=== PATIENT | male | born 1970 | race Caucasian/White ===

== ENCOUNTER 2016-07-25 10:28 | Day surgery (SDC) | payer BC ==
[2016-07-25] VITALS (12 sets, daily range): BP systolic 102–142; BP diastolic 58–81; PULSE 72–98; RESP 18; TEMP 98–98.4; O2SAT 94–99
[~2016-07-25] VITALS: Ht 170.2 cm; Wt 82.1 kg
[2016-07-25] MEDS ORDERED: MAGN400T2 PO (10:51)
[2016-07-25] MEDS ORDERED: NITR1SUB3 SL (10:51)
[2016-07-25] MEDS ORDERED: BACL10TA PO (10:51)
[2016-07-25] MEDS ORDERED: ASPI81CH CHEW (10:51)
[2016-07-25] MEDS ORDERED: NS 1000P @30 MLS/HR (KVO) IV SCH (11:00)
[2016-07-25] MEDS ORDERED: IOHEXOL 350 MG/ML 100 ML BTL (for Cath Lab) OTHER ONE (12:22)
[2016-07-25] MEDS ORDERED: HEPARIN-NS/PF INJ 500 ML ONE ×2 (12:24→13:25)
[2016-07-25] MEDS ORDERED: HEPARIN SODIUM - IV 10,000 UNITS/10 ML VIAL ONE (12:26)
[2016-07-25] MEDS ORDERED: VERAPAMIL HCL 5 MG/2 ML VIAL ONE (12:26)
[2016-07-25] MEDS ORDERED: MIDAZOLAM HCL 2 MG/2 ML VIAL ONE (12:26)
[2016-07-25] MEDS ORDERED: TEMAZEPAM 15 MG CAP PO PRN (14:00)
[2016-07-25] MEDS ORDERED: ONDANSETRON HCL 4 MG/2 ML VIAL IVP PRN (14:00)
[2016-07-25] MEDS ORDERED: MORPHINE SULFATE 4 MG/ML INJ IV PUSH PRN (14:00)
[2016-07-25] MEDS ORDERED: ACETAMINOPHEN 325 MG TAB PO PRN (14:00)
[2016-07-25] MEDS ORDERED: oxyCODONE/ACETAMINOPHEN 10 MG/325 MG TAB PO PRN (14:00)
[2016-07-25] MEDS ORDERED: TICAGRELOR 90 MG TAB PO ONE ×2 (14:00→14:01)
[2016-07-25] MEDS ORDERED: LIDOCAINE 2% JELLY 30 ML TUBE TOP PRN (14:00)
[2016-07-25] MEDS ORDERED: MISC INFORMATION XX ONE (14:00)
[2016-07-25] MEDS: SODIUM CHLOR 0.9% 1000 ML INJ 1,000 ML IV SCH (14:00)
[2016-07-25] MEDS ORDERED: BACITRACIN OINT 0.9 GM PKT TOP ONE (14:00)
[2016-07-25] MEDS ORDERED: ATEN25TA PO (14:07)
[2016-07-25] MEDS ORDERED: BRIL90TA PO (14:08)
[2016-07-25] MEDS ORDERED: ATOR40TA16 PO (14:08)
--- NOTE | 2016-07-25 14:18 | CATHPROC ---
[place] HIS Report Study Information Study Number Admission Scheduled Start Study Start [id number] 07/25/2016 07/25/2016 Jul 25 2016 12:24PM Study Type Left/Possible PCI Referring Institution Admit Source Facility Department 1 [facility] - Immunology Specialist Physician and Clinical Staff Initial Mateo Preston Joey, RN Circulator Clark RN, Carli Malik RN Recorder Lucy Wilson RCIS TECH2 Scrub Kevin Avery RCIS(BS) Procedures Performed Procedure Location (Site) Vessel Name Coronary Angiograms LCA Left Coronary Coronary Angiograms RCA Right Coronary Drug Eluting Inflatio LAD Prox Left Coronary Drug Eluting Inflatio RCA Dist Right Coronary L Heart Cath PTCA LAD Prox Left Coronary PTCA RCA Dist Right Coronary Wire insertion Radial (right) Radial Art. Equipment Time Steward/Stewardess Lounge Description Size Mfg Part Number Used/Scraped COPILOT VALVE, BLEEDBACK 13:20 [employer] [id number] Used CONTROL TRANSDUCER, TRUWAVE 12:25 MemfoACT HALL * [id number] Used W/[employer] CONCEPT DRAPE, RADIAL FEMORAL FULL 12:25 * [id number] Used DEVELOPMENT BODY 12:25 [employer] PACK, CCL CUSTOM * [id number] Used 12:25 [employer] SUPPORT, ARTERIAL ADULT [id number] Used 12:25 E[employer]ity PACER PEN, SKIN DUAL W/ RULER * [id number] Used 13:14 MEDTRONIC BALLOON, 2.0 X 10MM EUPHORA 10MM [id number] Used 13:19 MEDTRONIC BALLOON, 2.5 X 30MM EUPHORA 30MM [id number] Used 13:49 MEDTRONIC BALLOON, 3.0 X 12MM EUPHORA 12MM [id number] Used STENT, 2.5 30 RESOLUTE 13:30 MEDTRONIC 2.5 30 [id number] Used INTEGRITY RX STENT, 3.0 15 RESOLUTE 13:46 MEDTRONIC 3.0 15 [id number] Used INTEGRITY RX 13:15 [employer] MEDICAL 30 CLAU INDEFLATOR [id number] Used SHEATH, FR6 RADIAL PRELUDE 12:25 Efficiency Exchange FR 6 [id number] Used EASE 11CM 12:25 Efficiency Exchange WIRE, EXCHANGE 260CM 3MMJ 260CM [id number] Used 12:25 [employer]ED OMNIPAQUE, 350 MG, 100ML 100ML [id number] Used 12:25 [facility] BLANKET,WARM AIR CCL * [id number] Used BAND, RADIAL COMPRESSION TR 12:25 [employer] 29CM [id number] Used LARGE WIRE, RUNTHROUGH NS FLOPPY 13:11 [employer] 180CM 25-1011 Used .014 180CM WIRE, RUNTHROUGH NS FLOPPY 13:10 [employer] 300CM 25-1013 Used .014 300CM Scrap: Staff 13:28 MEDTRONIC BALLOON, 2.5 X 30MM EUPHORA 30MM [id number] Error Equipment Model, Serial, Lot Number and Expiration Data Description Model Number Serial Number Lot Number Expiration Date STENT, 2.5 30 RESOLUTE [id number] 11-21-2017 INTEGRITY RX STENT, 3.0 15 RESOLUTE [id number] 02-16-2018 INTEGRITY RX History: Current Medications Medication Dosage/Unit Route Frequency Last Date/Time Taken ASA NTG SL Magnesium History: Allergies Allergy Reaction No Known Allergies History: Risk Factors Family History of Hypertension Dyslipidemia Previous ME Previous Heart Failure Premature CAD No Yes No No No Prior Valve Prior PCI Prior CABG Surgery No No No Cerebrovascular Peripheral Artery Chronic Lung On Dialysis Diabetes Disease Disease Disease No No No No No History: Symptoms/Diagnosis Selection Items Chest pain History: Stress Tests Stress or Imaging Studies Performed Yes Standard Exercise Stress Stress Test Result Test Yes Positive Cardiac CTA Coronary Calcium Score No No History: Other Current Smoker No Labs Hgb (g/dl) Hct (%) RBC (MIL/MM3) WBC (l/cumm) Platelets (thousands) 12.00-18.00 37.00-55.00 4.80-6.20 4.80-10.80 140.00-450.00 15.6 46.5 5.2 7.4 277 Glucose (mg/dl) BUN (mg/dl) Creatinine (mg/dl) BUN:Creatinine (1:x) 60.00-110.00 8.00-20.00 0.10-9.00 10.00-20.00 95 12 0.9 13.3 Medication Medication Total Dose (Bolus/Oral) Medication Total Dosage/Unit 1% XYLOCAINE 20 mL BRILLINTA 180 mg FENTANYL 50 mcg HEPARIN 8000 units NTG (IC) 500 mcg VERSED 2 mg Medications (Bolus/Oral) Medication Time Given Dosage/Unit Administered By Reason VERSED 07/25/2016 12:50:27 PM 2 mg Micheal Ballard RN 2 mg VERSED given in lab by Micheal Ballard RN in Left Antecubital via Peripheral IV. 1% XYLOCAINE 07/25/2016 12:51:13 PM 20 mL Mateo Morocho 20 mL 1% XYLOCAINE given in lab by Mateo Morocho in Right Radial via Subcutaneous. FENTANYL 07/25/2016 12:51:39 PM 50 mcg Micheal Ballard RN 50 mcg FENTANYL given in lab by Micheal Ballard RN in Left Antecubital via Peripheral IV. NTG (IC) 07/25/2016 12:52:27 PM 200 mcg Mateo Morocho 200 mcg NTG (IC) given in lab by Mateo Morocho in Right Radial via Intra-arterial. HEPARIN 07/25/2016 12:52:51 PM 5000 units Micheal Ballard RN 5000 units HEPARIN given in lab by Micheal Ballard RN via Peripheral IV. HEPARIN 07/25/2016 1:07:47 PM 3000 units Micheal Ballard RN 3000 units HEPARIN given in lab by Micheal Ballard RN in Left Antecubital via Peripheral IV. NTG (IC) 07/25/2016 1:20:48 PM 200 mcg Mateo Morocho 200 mcg NTG (IC) given in lab by Mateo Morocho via Intra-coronary to RCA. NTG (IC) 07/25/2016 1:33:57 PM 50 mcg Mateo Morocho 50 mcg NTG (IC) given in lab by Mateo Morocho via Intra-coronary. NTG (IC) 07/25/2016 1:55:02 PM 50 mcg Mateo Morocho 50 mcg NTG (IC) given in lab by Mateo Morocho via Intra-coronary to LCA. BRILLINTA 07/25/2016 2:03:28 PM 180 mg Micheal Ballard RN 180 mg BRILLINTA given in lab by Micheal Ballard RN in Per mouth via Oral. Medication (Drip) Medication Time Given Dosage/Unit Concentration/Unit Diluent (ml) Solution IV Solutions 07/25/2016 12:26:22 PM 0 mL (IV) 500 NaCl .9 Patient arrived on IV Solutions given by Micheal Ballard RN in Left Antecubital via Peripheral IV. Pump/ Drip Flow = 20 ml/hr using NaCl .9. Initial Case Assessment Cardiovascular HR Rhythm NIBP Chest Pain 75 sr 140/84 0 Circulatory - Right Pulses Dorsalis Pedis Femoral 1 1 Scale (0,1,2,3,4,d) Circulatory - Left Pulses Dorsalis Pedis Femoral 1 1 Scale (0,1,2,3,4,d) Neurological State Oriented to time-place- Alert Moves all extremities person Respiration - General Respiration Rate (B/min) 10 Final Case Assessment Cardiovascular HR Rhythm NIBP Chest Pain 83 sr 121/73 2 Circulatory - Right Pulses Dorsalis Pedis Femoral 1 1 Scale (0,1,2,3,4,d) Circulatory - Left Pulses Dorsalis Pedis Femoral 1 1 Scale (0,1,2,3,4,d) Neurological State Oriented to time-place- Alert Moves all extremities person Respiration - General Respiration Rate SpO2 (%) (B/min) 14 95 Chronological Log Time Study Chronological Log 12:22:09 Patient arrived via Bed. 12:22:15 Patient Name, D.O.B, / Armband Verified By R.N. 12:24:19 Consent signed by the physician and the patient and verified by the Immunology Specialist staff. 12:24:20 Pre-op and post- op instructions given; patient acknowledges understanding of instructions. 12:24:21 Verbal Stimulation=2 Physical Stimulation=2 Airway=2 Respiration=2 TOTAL=8. (0=absent, 1=li mited, 2=present) 12:25:30 Presedation assessment performed by Immunology Specialist RN. 12:25:42 Allens test performed on the right radial and ulnar artery. 12:25:44 Patient has been NPO for More than 6Hrs. 12:25:45 Skin Breakdown-none 12:25:47 Fabricio Prominences Protected 12:25:50 A # 20 IV was noted in the Antecubital (left). Grade = patent Patient arrived on IV Solutions given by Micheal Ballard RN in Left Antecubital via Peripheral IV. Pump/Drip Flow = 20 12:26:22 ml/hr using NaCl .9. 12:26:50 History and physical on the chart or being dictated. Assessment: Initial Case, HR=75 BPM, Rhythm=sr, XIVN=455/84 mmhg, Chest Pain=0 Right Pulses: Esteban Ped=1, Femoral=1 12:26:51 Left Pulses: Esteban Ped=1, Femoral=1 Neurological: State=Alert, Ox3, BAKER Respiration: Resp=10 B/min Vitals capture started with the following parameters, Patient=Adult, Interval=15 min, Initial P akfinyw=934 mmHg, 12:26:55 Deflation Rate=5 mmHg 12:27:33 HR=75 bpm, OBFN=592/84 mmhg, SpO2=99.0 %, Resp=11 B/min 12:32:29 HR=87 bpm, HLJK=542/87 mmhg, SpO2=99.0 %, Resp=16 B/min, Pain=0, Durand=2 12:36:11 MD arrived. 12:37:01 Reference ECG taken 12:37:28 HR=96 bpm, GKGN=366/98 mmhg, SpO2=95.0 %, Resp=13 B/min 12:38:18 Right wrist and right groin prepped with 2% chlorhexidine, and draped after a 3 min. waitin g time. 12:41:19 Pressure channel 1 zeroed. 12:42:32 HR=83 bpm, GSUF=301/86 mmhg, SpO2=97.0 %, Resp=13 B/min, Pain=0, Durand=2 12:47:31 HR=88 bpm, OQKG=226/85 mmhg, SpO2=96.0 %, Resp=12 B/min, Pain=0, Durand=2 12:50:27 2 mg VERSED given in lab by Micheal Ballard RN in Left Antecubital via Peripheral IV. Time Out. Correct patient, correct procedure,correct physician, ,power injector loaded or not l oaded with contrast with 12:51:05 surgical team present. Time Out Concurred by MD, individual staff and BLANKET CUTTING MACHINE OPERATOR in procedure 12:51:12 Case Start 12:51:13 20 mL 1% XYLOCAINE given in lab by Mateo Morocho in Right Radial via Subcutaneous. 12:51:39 50 mcg FENTANYL given in lab by Micheal Ballard RN in Left Antecubital via Peripheral IV. 12:51:48 Access site was Radial Artery. Right A SHEATH, FR6 RADIAL PRELUDE EASE 11CM FR 6 was advanced into the Radial (right) using the Perc utaneous 12:52:13 technique. 12:52:27 200 mcg NTG (IC) given in lab by Mateo Morocho in Right Radial via Intra-arterial. 12:52:32 HR=91 bpm, FWHV=009/88 mmhg, SpO2=92.0 %, Resp=13 B/min 12:52:51 5000 units HEPARIN given in lab by Micheal Ballard RN via Peripheral IV. A JR 5.0 INFINITI CATHETER FR 6 was advanced over a wire. OMNIPAQUE, 350 MG, 100ML 100ML was us ed for 12:53:12 injections. Recorded Pressure: LV, GO=317, Condition=Condition 1 12:55:10 (Left Ventricle) LV 125/-5/3 Recorded Pressure: LV, Ao, HR=96, Condition=Condition 1 12:55:31 (Left Ventricle) LV 136/-7/2, (Aorta) Ao 115/75/88 12:56:19 The RCA was injected and visualized at various angles. OMNIPAQUE, 350 MG, 100ML 100ML used . 12:57:35 XB=848 bpm, NQSL=958/64 mmhg, SpO2=92 %, Resp=18 B/min After removing the current catheter a JL 3.5 INFINITI CATHETER FR 6 was advanced over a WIRE, E XCHANGE 260CM 12:58:33 3MMJ 260CM. OMNIPAQUE, 350 MG, 100ML 100ML was used for injections. 12:59:24 The LCA was injected and visualized at various angles. OMNIPAQUE, 350 MG, 100ML 100ML used . 13:02:30 EM=660 bpm, BUOA=688/70 mmhg, SpO2=91 %, Resp=15 B/min 13:03:11 Catheter was removed A XBRCA .070 GUIDE CATHETER FR 6 was advanced over a wire. OMNIPAQUE, 350 MG, 100ML 100ML was u sed for 13:07:22 injections. 13:07:29 HR=95 bpm, UMKY=727/76 mmhg, SpO2=94.0 %, Resp=12 B/min 13:07:47 3000 units HEPARIN given in lab by Micheal Ballard RN in Left Antecubital via Peripheral IV. 13:10:05 A WIRE, RUNTHROUGH NS FLOPPY .014 300CM 300CM was inserted via Radial (right). 13:12:06 The RCA was injected and visualized at various angles. OMNIPAQUE, 350 MG, 100ML 100ML used . 13:12:28 HR=95 bpm, ZLCK=736/80 mmhg, SpO2=93.0 %, Resp=8 B/min A BALLOON, 2.0 X 10MM EUPHORA 10MM was inserted over WIRE, RUNTHROUGH NS FLOPPY .014 300CM 300C M via 13:13:27 the RCA Dist. A BALLOON, 2.0 X 10MM EUPHORA 10MM over a WIRE, RUNTHROUGH NS FLOPPY .014 300CM 300CM in the RC A Dist 13:14:19 was inflated using a 30 CLAU INDEFLATOR at 8 clau for 15 sec. A BALLOON, 2.0 X 10MM EUPHORA 10MM over a WIRE, RUNTHROUGH NS FLOPPY .014 300CM 300CM in the RC A Dist 13:14:57 was inflated using a 30 CLAU INDEFLATOR at 9 clau for 10 sec. 13:15:46 Balloon Removed. A BALLOON, 2.5 X 30MM EUPHORA 30MM was inserted over WIRE, RUNTHROUGH NS FLOPPY .014 300CM 300C M via 13:16:17 the RCA Dist. A BALLOON, 2.5 X 30MM EUPHORA 30MM over a WIRE, RUNTHROUGH NS FLOPPY .014 300CM 300CM in the RC A Dist 13:17:29 was inflated using a 30 CLAU INDEFLATOR at 8 clau for 30 sec. 13:17:31 SV=444 bpm, VBTM=024/77 mmhg, SpO2=93.0 %, Resp=15 B/min A BALLOON, 2.5 X 30MM EUPHORA 30MM over a WIRE, RUNTHROUGH NS FLOPPY .014 300CM 300CM in the RC A Dist 13:18:09 was inflated using a 30 CLAU INDEFLATOR at 8 clau for 30 sec. 13:20:17 Activated Clotting Time Drawn 13:20:25 Balloon Removed. 13:20:48 200 mcg NTG (IC) given in lab by Mateo Morocho via Intra-coronary to RCA. 13:22:34 WS=769 bpm, SQAJ=370/62 mmhg, SpO2=92.0 %, Resp=12 B/min A BALLOON, 2.5 X 30MM EUPHORA 30MM was inserted over WIRE, RUNTHROUGH NS FLOPPY .014 300CM 300C M via 13:23:12 the RCA Dist. A BALLOON, 2.5 X 30MM EUPHORA 30MM over a WIRE, RUNTHROUGH NS FLOPPY .014 300CM 300CM in the RC A Dist 13:23:37 was inflated using a 30 CLAU INDEFLATOR at 6 clau for 20 sec. A BALLOON, 2.5 X 30MM EUPHORA 30MM over a WIRE, RUNTHROUGH NS FLOPPY .014 300CM 300CM in the RC A Dist 13:24:07 was inflated using a 30 CLAU INDEFLATOR at 8 clau for 20 sec. A BALLOON, 2.5 X 30MM EUPHORA 30MM over a WIRE, RUNTHROUGH NS FLOPPY .014 300CM 300CM in the RC A Dist 13:24:42 was inflated using a 30 CLAU INDEFLATOR at 8 clau for 15 sec. 13:25:42 ACT (Normal Range 90-180) = 362 13:25:49 Balloon Removed. 13:27:31 HR=97 bpm, LEUQ=970/72 mmhg, SpO2=92 %, Resp=19 B/min A STENT, 2.5 30 RESOLUTE INTEGRITY RX 2.5 30 was advanced through a XBRCA .070 GUIDE CATHETER F R 6 over a 13:29:30 WIRE, RUNTHROUGH NS FLOPPY .014 300CM 300CM. A STENT, 2.5 30 RESOLUTE INTEGRITY RX 2.5 30 was deployed using a 30 CLAU INDEFLATOR at 14 atmos pheres for 13:30:16 10 seconds in the RCA Dist. 13:30:35 Re-inflated the stent balloon in the RCA Dist to 12 CLAU for 12 seconds. 13:32:32 HR=99 bpm, AXPA=161/70 mmhg, SpO2=92.0 %, Resp=13 B/min 13:33:01 Delivery device removed 13:33:50 Wire removed 13:33:57 50 mcg NTG (IC) given in lab by Mateo Morocho via Intra-coronary. After removing the current catheter a AL 1.5 GUIDE CATHETER FR 6 was advanced over a WIRE, EXCH KIYA 260CM 13:35:56 3MMJ 260CM. OMNIPAQUE, 350 MG, 100ML 100ML was used for injections. 13:37:33 HR=95 bpm, BSUK=189/62 mmhg, SpO2=91.0 %, Resp=13 B/min 13:37:57 Activated Clotting Time Drawn A AL 2 GUIDE CATHETER FR 6 was advanced over a wire. OMNIPAQUE, 350 MG, 100ML 100ML was used fo r injections. 13:38:59 Unable to cannulate LCA 13:39:53 The LCA was injected and visualized at various angles. OMNIPAQUE, 350 MG, 100ML 100ML used . 13:40:33 A WIRE, RUNTHROUGH NS FLOPPY .014 180CM 180CM was inserted via Radial (right). 13:42:32 HR=92 bpm, DKZF=233/68 mmhg, SpO2=91.0 %, Resp=13 B/min, Pain=0, Durand=2 13:44:53 ACT (Normal Range 90-180) = 272 A STENT, 3.0 15 RESOLUTE INTEGRITY RX 3.0 15 was advanced through a AL 2 GUIDE CATHETER FR 6 ov er a WIRE, 13:47:22 RUNTHROUGH NS FLOPPY .014 180CM 180CM. 13:47:35 HR=93 bpm, ISGT=381/57 mmhg, SpO2=93.0 %, Resp=13 B/min 13:47:52 Stent not deployed. Stent removed and intact. A BALLOON, 3.0 X 12MM EUPHORA 12MM was inserted over WIRE, RUNTHROUGH NS FLOPPY .014 180CM 180C M via 13:48:21 the LAD Prox. A BALLOON, 3.0 X 12MM EUPHORA 12MM over a WIRE, RUNTHROUGH NS FLOPPY .014 180CM 180CM in the LA D 13:49:02 Prox was inflated using a 30 CLAU INDEFLATOR at 10 clau for 15 sec. A BALLOON, 3.0 X 12MM EUPHORA 12MM over a WIRE, RUNTHROUGH NS FLOPPY .014 180CM 180CM in the LA D 13:50:04 Prox was inflated using a 30 CLAU INDEFLATOR at 8 clau for 20 sec. A BALLOON, 3.0 X 12MM EUPHORA 12MM over a WIRE, RUNTHROUGH NS FLOPPY .014 180CM 180CM in the LA D 13:50:29 Prox was inflated using a 30 CLAU INDEFLATOR at 8 clau for 15 sec. 13:52:22 Balloon Removed. 13:52:32 HR=88 bpm, MVXW=121/65 mmhg, SpO2=93 %, Resp=13 B/min A STENT, 3.0 15 RESOLUTE INTEGRITY RX 3.0 15 was advanced through a AL 2 GUIDE CATHETER FR 6 ov er a WIRE, 13:52:32 RUNTHROUGH NS FLOPPY .014 180CM 180CM. A STENT, 3.0 15 RESOLUTE INTEGRITY RX 3.0 15 was deployed using a 30 CLAU INDEFLATOR at 16 atmos pheres for 13:53:07 10 seconds in the LAD Prox. 13:53:38 Delivery device removed 13:55:02 50 mcg NTG (IC) given in lab by Mateo Morocho via Intra-coronary to LCA. 13:56:08 Wire removed 13:56:29 Catheter was removed 13:56:45 Patient complaining of chest pain during stent deployment. 13:57:33 HR=87 bpm, DFVX=390/70 mmhg, SpO2=94 %, Resp=16 B/min 14:00:08 Case End 14:01:27 Cine recording checked. 14:01:29 Bedside Report will be given. 14:01:31 Implantable Device card placed in patient's chart. Radial Compression Device Used. 13 mLs of air placed in BAND, RADIAL COMPRESSION TR LARGE 29CM. Affected hand 14:01:33 92 % O2 saturation. 14:02:32 HR=84 bpm, GPWK=933/73 mmhg, SpO2=95.0 %, Resp=16 B/min 14:03:28 180 mg BRILLINTA given in lab by Micheal Ballard RN in Per mouth via Oral. Assessment: Final Case, HR=83 BPM, Rhythm=sr, QOCE=972/73 mmhg, Chest Pain=2 Right Pulses: Esteban Ped=1, Femoral=1 14:04:08 Left Pulses: Esteban Ped=1, Femoral=1 Neurological: State=Alert, Ox3, BAKER Respiration: Resp=14 B/min, SpO2=95 % 14:06:53 Vitals capture stopped. 14:07:33 Patient moved to bed 14:07:41 A Left Heart Cath was performed. 14:07:54 Clinical correlaton risk stratification. 14:09:58 Patient transported to DOCU End Study - Contrast Media Used In Study Contrast Total Opened (mL) Total Used (mL) Total Wasted (mL) Omnipaque 280 280 0 End Study - Maximum Contrast Load Max Contrast Load (mL) 462.1 End Study - Radiation Exposure Fluoro Time (minutes) 13.2 End Study - Patient Disposition Complications Transferred To Interventional Outcome No Telemetry Bed successful
[2016-07-25] MEDS ORDERED: NITROGLYCERIN 0.4 MG SL 25 TABS/BTL SL ONE (14:31)
[2016-07-25] MEDS: ISOSORBIDE MONONITRATE 30 MG TAB PO SCH (15:12)
--- NOTE | 2016-07-25 16:26 | MA ---
cc: MONTY BLANCA MD DATE 07/25/2016 PROCEDURES PERFORMED 1. Fluoroscopy with interpretation. 2. Coronary angiography. 3. Left heart catheterization. 4. Percutaneous intervention drug-eluting stents to the proximal left anterior descending and distal right coronary arteries. METHOD Risks, benefits and alternatives discussed with the patient. The patient understood and consented. PROCEDURE DETAILS The patient was brought in to the catheterization lab and placed on the catheterization table. Right wrist was prepped and draped in sterile fashion. Right wrist was anesthetized with 2% lidocaine. Right radial artery was cannulated and a 6-Canadian 7 cm sheath was placed out difficulty. 200 mcg of intra-arterial nitroglycerin in addition to 5000 units of intravenous heparin was administered. LEFT HEART CATHETERIZATION A 6-Canadian JR-5 catheter was advanced across the aortic valve without difficulty. Intraventricular hemodynamic pressure was 136/2 mmHg. CORONARY ANGIOGRAPHY Left coronary circulation was selectively engaged with a 6-Canadian JL 3.5 catheter. Right coronary circulation was selectively engaged with a 6-Canadian JR-5 catheter. CORONARY ANATOMY 1. Left main coronary is angiographically normal. 2. Left anterior descending coronary has a 95% proximal stenosis. There are mild luminal irregularities in the mid segment of left anterior descending coronary. The remainder vessel is widely patent. 3. Left circumflex gives rise to an obtuse marginal branch. The mid circumflex leading into the obtuse marginal branch has a 40% tubular stenosis. 4. The right coronary is a dominant vessel giving rise to posterior descending coronary. The distal right coronary is occluded. There is some whar-gr-ejrna collaterals visualized. PERCUTANEOUS INTERVENTION The patient was awake, discussed potential options for percutaneous intervention to the occluded right coronary artery and proximal left anterior descending coronary versus bypass surgery. The patient wished to avoid surgical intervention. Heparin was administered throughout the entire procedure to maintain appropriate angulation. Right coronary was selectively engaged with 6-Canadian XB RCA guide catheter, 0.014 300 cm Terumo run-through wire was navigated down the distal posterolateral branch. A 2.0 x 15 mm RX Euphora balloon was then deployed in the distal right coronary and repeat angiography showed congregation of KAYLEEN III flow, but rather diffuse stenosis distally. A 2.5 x 30 mm RX Euphora balloon was deployed in the posterolateral branch and distal right coronary on two sequential inflations. Repeat angiography showed KAYLEEN III flow. A 2.5 x 30 mm RX Resolute drug-eluting stent was advanced down to the distal right coronary just prior to the bifurcation of posterior descending and posterolateral branch and deployed. Repeat angiography did not show any significant residual stenosis. The proximal segment in the right coronary artery had mild luminal irregularities. Attention was then directed towards the left coronary circulation. Left main was selectively engaged with 6-Canadian AL-2 guide catheter. A 0.014 180 cm Terumo run-through wire was navigated down to the distal left anterior descending coronary artery. A 3.0 x 12 mm Euphora balloon was deployed on two sequential inflations to the proximal left anterior descending coronary. Repeat angiography showed still severe residual stenosis. A 3.0 x 15 mm RX Resolute drug-eluting stent is deployed in the proximal left anterior descending coronary with careful attention paid not to extend into the left main. Repeat angiography showed no residual stenosis, KAYLEEN III flow. Guide catheter was removed. Sheath removed. Hemoband applied. CONCLUSION 1. Severe two-vessel coronary artery disease involving the proximal left anterior descending and distal right coronary arteries. 2. Successful percutaneous intervention with drug-eluting stents to the proximal left anterior descending, left anterior descending and distal right coronary arteries. 3. Normal left-sided filling pressures. PLAN Hopefully this will translate with symptomatic improvement. We will monitor him closely for any post procedural complications. He will be initially on aspirin, Brilinta, statin and beta jabier. We will also add a long-acting nitrate. We will monitor him overnight and if all goes well anticipate discharge tomorrow. MD LIZ Leahy/REID /2:16 PM /3:55 PM
[2016-07-25] MEDS: oxyCODONE/ACETAMINOPHEN 5 MG/325 MG TAB PO PRN (17:04)
[2016-07-25] MEDS: TICAGRELOR 90 MG TAB PO SCH (20:36)
[2016-07-25] MEDS ORDERED: ATORVASTATIN 40 MG TAB PO SCH (21:00)
[2016-07-26] VITALS (12 sets, daily range): BP systolic 111–115; BP diastolic 68–71; PULSE 66–86; RESP 16–18; TEMP 97.9–98.4; O2SAT 95–96
[2016-07-26] MEDS: SODIUM CHLOR 0.9% 1000 ML INJ 1,000 ML IV SCH
[2016-07-26] MEDS: oxyCODONE/ACETAMINOPHEN 5 MG/325 MG TAB PO PRN (04:10)
[2016-07-26 06:15] LABS: AUTOMATED NEUTROPHIL # 5.7 TH/MM3 (1.8-7.7); BASOPHIL % 0.2 % (0.0-2.0); EOSINOPHIL # 0.1 TH/MM3 (0-0.4); EOSINOPHIL % 1.6 % (0.0-4.0); HEMATOCRIT 39.9 % (39.0-51.0); HEMO FLAGS DIFF FINAL; LYMPH % 22.4 % (9.0-44.0); LYMPHOCYTE # 1.9 TH/MM3 (1.0-4.8); MEAN CELL VOLUME 88.5 FL (80.0-100.0); MEAN CORPUSCULAR HEMOGLOBIN 30.4 PG (27.0-34.0); MEAN CORPUSCULAR HGB CONC 34.4 % (32.0-36.0); MONO % 9.6 % (0.0-8.0); NEUT % 66.2 % (16.0-70.0); PLATELET COUNT 214 TH/MM3 (150-450); RED CELL DISTRIBUTION WIDTH 13.1 % (11.6-17.2); WHITE BLOOD COUNT 8.6 TH/MM3 (4.0-11.0)
[2016-07-26] MEDS: ISOSORBIDE MONONITRATE 30 MG TAB PO SCH (06:35)
[2016-07-26 06:46] LABS: BICARBONATE 28.7 MEQ/L (21.0-32.0); POTASSIUM 3.8 MEQ/L (3.5-5.1)
[2016-07-26 06:48] LABS: HDL CHOLESTEROL 28.8 MG/DL (40.0-60.0)
--- NOTE | 2016-07-26 07:24 | PD.CARD.PN ---
Subjective Subjective Remarks denies chest pain Objective Vital Signs / I&O Vital Signs Date Time Temp Pulse Resp B/P Pulse Ox O2 Delivery O2 Flow Rate FiO2 07/26/16 05:00 68 07/26/16 04:00 76 07/26/16 03:50 98.4 73 18 115/68 96 07/26/16 03:00 68 07/26/16 02:00 74 07/26/16 01:00 72 07/26/16 00:10 16 07/26/16 00:00 66 07/25/16 23:40 98.4 86 18 102/58 99 07/25/16 23:00 72 07/25/16 22:00 78 07/25/16 21:00 90 07/25/16 20:00 96 07/25/16 19:35 98.1 86 18 114/65 99 07/25/16 19:00 93 07/25/16 18:36 85 07/25/16 17:07 89 07/25/16 16:31 98 07/25/16 15:00 98.0 91 18 142/80 94 07/25/16 14:34 100 Room Air 07/25/16 10:51 98.0 77 18 141/81 96 I/O 07/25/16 07/25/16 07/25/16 07/26/16 07/26/16 07/26/16 07:00 15:00 23:00 07:00 15:00 23:00 Intake Total 860 ml 480 ml Output Total 800 ml 750 ml Balance 60 ml -270 ml Intake Oral 360 ml 480 ml IV Total 500 ml Output Urine Total 800 ml 750 ml # Bowel Movements 1 Physical Exam GENERAL: Well-nourished, well-developed patient in no apparent distress. NECK: No JVD. No carotid bruit. CARDIOVASCULAR: Regular rate and rhythm. S1/S2 no murmur, rub, or gallop. RESPIRATORY: No accessory muscle use. Clear to auscultation. Breath sounds equal bilaterally. GASTROINTESTINAL: Abdomen soft, non-tender, nondistended. MUSCULOSKELETAL: Extremities without clubbing, cyanosis, or edema. Laboratory Laboratory Tests Test 07/25/16 07/25/16 07/26/16 10:50 10:55 04:30 Blood Type AB POSITIVE AB POSITIVE Antibody Screen NEGATIVE White Blood Count 8.6 TH/MM3 Red Blood Count 4.50 MIL/MM3 Hemoglobin 13.7 GM/DL Hematocrit 39.9 % Mean Corpuscular Volume 88.5 FL Mean Corpuscular Hemoglobin 30.4 PG Mean Corpuscular Hemoglobin 34.4 % Concent Red Cell Distribution Width 13.1 % Platelet Count 214 TH/MM3 Mean Platelet Volume 8.7 FL Neutrophils (%) (Auto) 66.2 % Lymphocytes (%) (Auto) 22.4 % Monocytes (%) (Auto) 9.6 % Eosinophils (%) (Auto) 1.6 % Basophils (%) (Auto) 0.2 % Neutrophils # (Auto) 5.7 TH/MM3 Lymphocytes # (Auto) 1.9 TH/MM3 Monocytes # (Auto) 0.8 TH/MM3 Eosinophils # (Auto) 0.1 TH/MM3 Basophils # (Auto) 0.0 TH/MM3 CBC Comment DIFF FINAL Differential Comment Sodium Level 139 MEQ/L Potassium Level 3.8 MEQ/L Chloride Level 105 MEQ/L Carbon Dioxide Level 28.7 MEQ/L Anion Gap 5 MEQ/L Blood Urea Nitrogen 14 MG/DL Creatinine 0.95 MG/DL Estimat Glomerular Filtration 85 ML/MIN Rate Random Glucose 84 MG/DL Calcium Level 8.3 MG/DL Total Creatine Kinase 114 U/L Triglycerides Level 156 MG/DL Cholesterol Level 183 MG/DL LDL Cholesterol 123 MG/DL HDL Cholesterol 28.8 MG/DL Cholesterol/HDL Ratio 6.35 RATIO Assessment and Plan Problem List: (1) Angina pectoris (2) CAD (coronary artery disease) Assessment and Plan CAD s/p PCI KHUSHBU LAD and RCA, He will continue ASA, Brilinta, BB, statin and isosorbide. He can be discharged home and f/u in our office in two weeks Nash Trejo July 26, 2016 07:24
[2016-07-26] MEDS: TICAGRELOR 90 MG TAB PO SCH (08:16)
[2016-07-26] MEDS ORDERED: ASPIRIN 81 MG CHEW TAB PO SCH (09:00)
[2016-07-26] MEDS ORDERED: ATENOLOL 25 MG TAB PO SCH (09:00)
--- NOTE | 2016-07-26 16:23 | EKG ---
Date Performed: 07/26/2016 Time Performed: 06:31:12 PTAGE: 46 years EKG: Sinus rhythm Inferior T wave changes are nonspecific Borderline ECG Compared to prior study, evidence for inferio r infarction is no longer present. PREVIOUS TRACING : 07/25/2016 22.46 DOCTOR: Zoran Brito Interpretating Date/Time 07/26/2016 16:22:00
--- NOTE | 2016-07-26 18:47 | EKG ---
Date Performed: 07/25/2016 Time Performed: 22:46:30 PTAGE: 46 years EKG: Sinus rhythm Possible inferior infarct - age undetermined Abnormal ECG NO PREVIOUS TRACING DOCTOR: Zoran Brito Interpretating Date/Time 07/26/2016 18:43:40
== END 2016-07-26 10:59 | disposition home or self-care (01) ==
LOC: HDOC 10:28 → HDIC 10:29 → HDOC 16:35 → HCIN 16:35 → UNDOADMOB 16:35 → HDOC 07-26 10:59
PROVIDERS: ATTEND Internal Medicine
DX: I25.10 Atherosclerotic heart disease of native coronary artery without angina pectoris (principal); E78.5 Hyperlipidemia, unspecified; R94.39 Abnormal result of other cardiovascular function study; R94.31 Abnormal electrocardiogram [ECG] [EKG]
CPT/HCPCS: 80048; 80061; 82550; 85002; 85025; 86850; 86900; 86901; 92928; 92929; 93005; 93454; C1725; C1769; C1874; C1887; C1893; J1644; J2250; J3010; J7030; Q9967